=== PATIENT | female | born 1990 | race Caucasian/White ===

== ENCOUNTER → 2024-04-16 10:51 | Outpatient (BNVA) | payer MEDICAID, SELFPAY | PROVIDERS: PCP Family Medicine; Visit Provider Internal Medicine | DX: E04.1 Nontoxic single thyroid nodule (principal); E03.9 Hypothyroidism, unspecified; R63.5 Abnormal weight gain; R73.03 Prediabetes; R10.9 Unspecified abdominal pain; Z84.89 Family history of other specified conditions; G43.909 Migraine, unspecified, not intractable, without status migrainosus | CPT/HCPCS: 99214 ==

== ENCOUNTER 2024-07-16 13:11 | Inpatient (IN) | payer OTHER, MEDICAID, SELFPAY ==
[2024-07-16 13:18] VITALS: BP 119/76; PULSE 74; RESP 14; TEMP 36.8; O2SAT 96; BMI 44.2
--- NOTE | 2024-07-16 13:32 | W.ED.PSYCHS ---
HPI - Psych General: Chief Complaint: Psychiatric Symptoms Stated Complaint: SI Time Seen by Provider: 07/16/24 13:28 Source: patient Mode of arrival: ambulatory Limitations: no limitations History of Present Illness: Patient is a 33-year-old female presents to ED today with complaint of worsening depression passive suicidal thoughts. Patient states she is struggled with depression since 2016. She has been on escitalopram fairly consistently but has been on other antidepressant medications as well over that time. She states she recently reached out to her psychiatrist in [place] due to worsening depression who placed her on Rexulti in addition to her escitalopram. She states since then she feels like her depression has worsened. She is now having more intrusive thoughts and thoughts that the world would be better off without her. No specific thoughts of suicide. She is feeling more burdensome to other people. She went to her primary care provider who referred her to the emergency department for voluntary admission to [facility]. Patient states she has never attempted suicide previously. She just wants to get help before her thoughts continue to worsen. MD complaint: suicidal ideation and feels depressed Onset (ago): week(s) Duration: constant History of same: Yes Relieving factors: none Exacerbating factors: medication Associated psychiatric symptoms: depression and suicidal ideation Associated symptoms: Reports depression; Deny auditory hallucinations, visual hallucinations or homicidal ideation Treatments prior to arrival: none Related Data Home Medications ?Medication ?Instructions ?Recorded ?Confirmed CPAP 03/27/22 04/15/24 alprazolam 1 mg tablet 1 mg PO DAILY 03/27/22 04/15/24 aripiprazole 10 mg tablet 10 mg PO DAILY 03/27/22 04/15/24 cyclobenzaprine 10 mg tablet 10 mg PO ONCE PRN 03/27/22 04/15/24 gabapentin 300 mg capsule 300 mg PO BID 03/27/22 04/15/24 irbesartan 75 mg tablet 75 mg PO DAILY 03/27/22 04/15/24 metformin 500 mg tablet,extended 500 mg PO DAILY 03/27/22 04/15/24 release 24 hr omeprazole 20 mg capsule,delayed 20 mg PO DAILY 03/27/22 04/15/24 release ondansetron HCl 4 mg tablet 4 mg PO Q8H 03/27/22 04/15/24 venlafaxine 150 mg 150 mg PO DAILY 03/27/22 04/15/24 capsule,extended release 24 hr escitalopram oxalate 20 mg tablet 20 mg PO DAILY Depression 02/20/23 04/15/24 Previous Rx's ?Medication ?Instructions ?Recorded liraglutide 0.6 mg/0.1 mL (18 mg/3 See Rx Instructions SUBCUT 03/29/23 mL) subcutaneous pen injector .COMPLEX #6 mL (Victoza 2-Curt) levothyroxine 300 mcg tablet 300 mcg PO DAILY #90 tabs 01/09/24 levothyroxine 88 mcg tablet 88 mcg PO DAILY #30 tabs 04/21/24 Allergies Allergy/AdvReac Type Severity Reaction Status Date / Time ketamine Allergy Severe ADR-Halluci Verified 07/16/24 13:24 nating brexpiprazole (From Rexulti) Allergy Unknown Verified 07/16/24 13:24 NSAIDS (Non-Steroidal AdvReac bariatric Verified 07/16/24 13:24 Anti-Inflamma surgery Review of Systems Const: Denies: fever(s) or chills Card: Denies: chest pain, palpitations, lightheadedness or syncope Resp: Denies: dyspnea GI: Denies: abdominal pain, nausea, vomiting or diarrhea Skin/Breast: Denies: rash Neuro: Denies: headache(s) Psych: Reports: anxiety, depression and hopelessness; Denies: irritability, visual hallucinations, auditory hallucinations or homicidal ideation [facility] ED PFSH: Medical History Acquired hypothyroidism DDD (degenerative disc disease) PTSD (post-traumatic stress disorder) Chronic fatigue PCOS (polycystic ovarian syndrome) Hypertension Surgical History History of laparoscopic cholecystectomy Family History Other Cancer Diabetes Hypertension Social History Smoking and tobacco/nicotine status: never used tobacco/nicotine Female Reproductive History: Date of last menstrual period: 07/13/24 Physical Exam Const: COMMON NORMALS: no acute distress, patient oriented x3, no limitations, alert and well nourished GENERAL APPEARANCE: cooperative Resp: COMMON NORMALS: normal respiratory effort and clear to auscultation bilaterally AUSCULTATION: clear to auscultation bilaterally Cardio: COMMON NORMALS: regular rate and regular rhythm RATE: regular rate RHYTHM: regular rhythm Neuro: COMMON NORMALS: patient oriented x3 SENSORIUM/ORIENTATION: Yes alert Psych: COMMON NORMALS: mental status grossly normal, Normal thought process present, cooperative, normal affect, speech normal, activity/motor behavior normal, denies hallucinations, denies homicidal ideation and denies suicidal ideation APPEARANCE: Yes grossly normal ATTITUDE: Yes calm ACTIVITY/MOTOR BEHAVIOR: Yes appropriate eye contact and No psychomotor agitation SPEECH: Yes normal speech MOOD & AFFECT: Yes depressed mood and Yes Flat affect present THOUGHT PROCESS: Normal thought process present THOUGHT CONTENT: Yes Normal thought content present ATTENTION/CONCENTRATION: Yes attention grossly intact and Yes concentration grossly intact MEMORY/COGNITION: Yes memory grossly intact and Yes cognition grossly intact INSIGHT: Good insight present (Psych) JUDGEMENT: Good judgement present (Psych) Course Consultations: Consultation #1: Dr. Ruiz-accepts to [facility] Vital Signs: Vital signs: Vital Signs Temperature 98.2 F 07/16/24 13:18 Pulse Rate 74 07/16/24 13:18 Respiratory Rate 14 07/16/24 13:18 Blood Pressure 119/76 07/16/24 13:18 Pulse Oximetry 96 07/16/24 13:18 Oxygen Delivery Me thod Room Air 07/16/24 13:18 [facility] - Psych Medical Decision Making Patient will be voluntarily admitted to NPU to Dr. Ruiz. Medical Records I reviewed the patient's medical records. Lab Data I reviewed the patient's lab results. No radiology studies performed this visit Discharge Plan Discharge Patient Disposition: Admitted As Inpatient Clinical Impression: Depression Qualifiers: Depression Type: major depressive disorder Major depression recurrence: recurrent Active/Remission status: currently active Major depression episode severity: severe Psychotic features: without psychotic features Qualified Code(s): F33.2 - Major depressive disorder, recurrent severe without psychotic features Condition: Stable Coding Level of Care Code ED Cnmt for Sylvia Andrade
[2024-07-16 13:56] LABS: Amphetamines Screen Urine Negative (Negative); Barbiturates Screen Urine Negative (Negative); Benzodiazepines Screen Urine Negative (Negative); Cocaine Screen Urine Negative (Negative); Opiate Screen Urine Negative (Negative); PCP Screen Urine Negative (Negative); THC Screen Urine Negative (Negative)
[2024-07-16 14:26] LABS: Basophils % 0.6 %; Eosinophils # 0.1 10^3/uL (0.0-0.8); Eosinophils % 2.5 %; Hematocrit 38.8 % (36-47); Lymphocytes # 2.1 10^3/uL (0.8-4.8); Lymphocytes % 44.6 %; Mean Corpuscular Hemoglobin 30.7 pg (27-33); Mean Platelet Volume 10.4 fL (7.4-10.4); Monocytes # 0.3 10^3/uL (0.2-0.9); Monocytes % 6.8 %; Neutrophils # 2.14 10^3/uL (1.8-7.7); Neutrophils % 45.3 %; Nucleated Red Blood Cells % 0 %; Platelet Count 192 10^3/cmm (157-399); Red Blood Count 4.17 10^6/uL (3.85-5.65); Red Cell Distribution Width 13.2 % (12.1-15.1); White Blood Count 4.73 10^3/uL (3.29-11.43)
[2024-07-16 14:43] LABS: HCG, Serum Qual Negative (Negative)
[2024-07-16 14:45] LABS: Alanine Aminotransferase 18 U/L (0-33); Albumin Level 3.7 g/dL (3.5-5.2); Alkaline Phosphatase 77 U/L (35-105); Anion Gap 13.5 (5-19); Aspartate Amino Transferase 20 U/L (0-32); Blood Urea Nitrogen 7 mg/dL (6-20); Calcium 8.6 mg/dL (8.5-10.5); Carbon Dioxide 20 mmol/L (22-29); Chloride 111 mmol/L (98-107); Creatinine Clr Calc Pharmacy 179.5707; Globulin 2.7 g/dL (1.3-4.6); Glomerular Filtration Rate 115.1 mL/min (90-130); Glucose 91 mg/dL (65-115); Osmolality Calculated 290 mOsm/kg (285-295); Potassium 3.5 mmol/L (3.5-5.1); Salicylate 1.4 mg/dL (3-10); Sodium 141 mmol/L (136-145); Total Bilirubin 0.2 mg/dL (0.15-1.2); Total Protein 6.4 g/dL (6.6-8.7)
[2024-07-16 14:47] LABS: Acetaminophen < 5.0 ug/mL (10-30); Alcohol Level < 10 mg/dL (0-10)
--- NOTE | 2024-07-16 15:15 | PC.PHAR ---
Pt has not had an updated med list for awhile. Several changes made. All newer medications verified with [employer] View with last fill dates and day supply added.
[2024-07-16 15:20] VITALS: BP 96/61; PULSE 76; O2SAT 95
[2024-07-16 16:23] VITALS: BP 116/78; PULSE 72; RESP 16; TEMP 36.7; O2SAT 99
[2024-07-16 20:01] VITALS: BP 118/69; PULSE 74; RESP 16; TEMP 36.6; O2SAT 97
[2024-07-16] MEDS: mirtazapine 30 mg Tablet PO (20:08)
[2024-07-17 06:00] VITALS: BP 95/68; PULSE 67; RESP 16; TEMP 36.5; O2SAT 97
[2024-07-17] MEDS: levothyroxine 150 mcg Tablet 300 MCG PO (07:54)
[2024-07-17] MEDS: cetirizine 10 mg Tablet PO (07:54)
[2024-07-17] MEDS: sennosides-docusate Tablet 2 TAB PO (07:55)
[2024-07-17] MEDS: levothyroxine 88 mcg Tablet PO (07:55)
[2024-07-17] MEDS: ALPRAZolam 0.5 mg Tablet PO (07:57)
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
[2024-07-17] MEDS: escitalopram 10 mg Tablet 20 MG PO (10:18)
[2024-07-17] MEDS: acetaminophen 325 mg Tablet 650 MG PO (11:22)
[2024-07-17 14:00] VITALS: BP 111/58; PULSE 66; RESP 16; TEMP 36.7; O2SAT 98
[2024-07-17] MEDS: buPROPion HCL 75 MG TABLET PO (15:35)
[2024-07-17] MEDS: nicotine 21 mg Patch 1 PATCH TRANSDERMA (15:45)
[2024-07-17 19:42] VITALS: BP 114/78; PULSE 79; RESP 17; TEMP 36.7; O2SAT 99
[2024-07-17] MEDS: mirtazapine 30 mg Tablet PO (20:10)
--- NOTE | 2024-07-17 22:30 | PC.NURSE ---
pt cpap pt given cpap at this time. sitter at bedside.
[2024-07-18 06:25] VITALS: BP 120/68; PULSE 78; RESP 17; TEMP 36.8; O2SAT 96
[2024-07-18] MEDS: buPROPion HCL 75 MG TABLET PO (09:55)
[2024-07-18] MEDS: fluticasone nasal spray 16gm Btl 1 SPRAY INTRANASAL (09:55)
[2024-07-18] MEDS: levothyroxine 150 mcg Tablet 300 MCG PO (09:55)
[2024-07-18] MEDS: levothyroxine 88 mcg Tablet PO (09:55)
[2024-07-18] MEDS: escitalopram 10 mg Tablet 20 MG PO (09:55)
[2024-07-18] MEDS: sennosides-docusate Tablet 2 TAB PO (09:55)
[2024-07-18] MEDS: cetirizine 10 mg Tablet PO (09:55)
[2024-07-18] MEDS: ALPRAZolam 0.5 mg Tablet PO (10:02)
[2024-07-18] MEDS: nicotine 21 mg Patch 1 PATCH TRANSDERMA (10:02)
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
[2024-07-18 13:27] VITALS: BP 120/68; PULSE 78; RESP 17; TEMP 36.8; O2SAT 96
== END 2024-07-18 14:20 | disposition home or self-care (01) | DRG 885 ==
LOC: ER 14:13 → NP 14:39
PROVIDERS: Admitting Provider Psychiatry & Neurology Psychiatry; Emergency Provider Physician Assistant; PCP Family Medicine; Visit Provider Psychiatry & Neurology Psychiatry
DX: F33.2 Major depressive disorder, recurrent severe without psychotic features (principal); R45.851 Suicidal ideations; F41.0 Panic disorder [episodic paroxysmal anxiety]; G47.30 Sleep apnea, unspecified; E66.01 Morbid (severe) obesity due to excess calories; R73.03 Prediabetes; E06.3 Autoimmune thyroiditis; D64.9 Anemia, unspecified; Z79.890 Hormone replacement therapy; Z79.899 Other long term (current) drug therapy; F41.1 Generalized anxiety disorder; E03.9 Hypothyroidism, unspecified
CPT/HCPCS: 36415; 80053; 80306; 80307; 84703; 85025; 97150; 97165; 99285; J9999

== ENCOUNTER → 2024-07-21 11:02 | Outpatient (BNVA) | payer OTHER, MEDICAID, SELFPAY | PROVIDERS: PCP Family Medicine; Visit Provider Internal Medicine | DX: E04.1 Nontoxic single thyroid nodule (principal); E03.9 Hypothyroidism, unspecified; R63.5 Abnormal weight gain; R73.03 Prediabetes; R10.9 Unspecified abdominal pain; G43.909 Migraine, unspecified, not intractable, without status migrainosus | CPT/HCPCS: 84439; 84443 ==

== ENCOUNTER → 2024-10-15 08:21 | Outpatient (BNVA) | payer OTHER, MEDICAID, SELFPAY | PROVIDERS: PCP Family Medicine; Visit Provider Internal Medicine | DX: E04.1 Nontoxic single thyroid nodule (principal) | CPT/HCPCS: 84439; 84443 ==